=== PATIENT | male | born 1980 | race Caucasian/White ===

== ENCOUNTER → 2024-03-31 | Outpatient (CLI) | payer OTHER ==
[~2024-03-31] MED LIST: AMBIEN10 MG PO; EFFEXOR100 MG PO; IBU-8800 MG PO; RISPERDAL2 MG PO
== END | disposition home or self-care (01) ==
LOC: ORTHO 00:32
PROVIDERS: ATTEND Orthopaedic Surgery
DX: M19.032 Primary osteoarthritis, left wrist (principal); M19.031 Primary osteoarthritis, right wrist; G56.00 Carpal tunnel syndrome, unspecified upper limb

== ENCOUNTER → 2024-04-11 | Day surgery (SDC) | payer OTHER ==
[2024-04-07 09:24] LABS: BUN 12 mg/dl (9-23); CHLORIDE 104 mmol/L (98-107); POTASSIUM 4.5 mmol/L (3.4-5.1)
[~2024-04-11] VITALS: Ht 167.6 cm; Wt 115.7 kg
[~2024-04-11] MED LIST changes: +BUPivacaine 0.5% 10 ML VIAL ONE; +Lactated Ringer's Solution 1,000 ML IV ONE; +Lidocaine Hydrochloride 30 ML VIAL ONE; +Lidocaine Hydrochloride 5 ML VIAL IV ONE; +Midazolam Hydrochloride 2 MG/2 ML VIAL IV ONE; +PROPOFOL 200 MG/20 ML VIAL IV ONE; +VIAGRA25 MG PO; +ceFAZolin sodium 1GM/10ML IV SCH; +ceFAZolin sodium/sodium chlor 10 ML IV ONE
[2024-04-11 06:51] VITALS: BP 134/80
[2024-04-11 08:05] VITALS: BP 118/76
[2024-04-11 08:20] VITALS: BP 122/72
[2024-04-11 08:33] VITALS: BP 124/82
== END | disposition home or self-care (01) ==
LOC: SDC 04-07 14:00
PROVIDERS: ATTEND Orthopaedic Surgery
DX: G56.03 Carpal tunnel syndrome, bilateral upper limbs (principal); F32.A Depression, unspecified; G47.00 Insomnia, unspecified; I45.10 Unspecified right bundle-branch block; Z79.899 Other long term (current) drug therapy